=== PATIENT | female | born 1975 | race Hispanic/Latino ===

== ENCOUNTER 2022-10-10 12:25 | Emergency (ER) | payer OTHER, BC ==
[2022-10-10 12:28] VITALS: O2SAT 100
[2022-10-10] MEDS ORDERED: TRIAMCINOLONE ACET 40 MG/ML VIAL INJ ONE (12:30)
[2022-10-10] MEDS ORDERED: LIDOCAINE HCL 1% LOCAL INJ 20 ML VIAL INJ ONE (12:30)
[2022-10-10] MEDS ORDERED: ANAPROX DS550 MG PO (12:57)
== END 2022-10-10 13:05 | disposition home or self-care (01) ==
LOC: ER 12:33
DX: M25.511 Pain in right shoulder (principal); S43.421A Sprain of right rotator cuff capsule, initial encounter; X50.0XXA Overexertion from strenuous movement or load, initial encounter; Y92.89 Other specified places as the place of occurrence of the external cause
CPT/HCPCS: 99283; J2001; J3301